=== PATIENT | female | born 2000 | race Caucasian/White ===

== ENCOUNTER 2024-11-28 07:59 | Outpatient (AMB) | payer OTHER, SELFPAY ==
--- OUTSIDE RECORDS SUMMARY | 2024-11-28 08:02 | XMS_ITS | Clinical Summary ---
Author Organization [employer] Address [address] [facility] [address] [place] [address] Care Team Providers Care Sales Marketing Name Role Phone Unavailable Primary Care Provider Unavailabl e Social History Tobacco Use Types Packs/Day Years Used Date Smoking Tobacco: Never Assessed Comments Unknown Sex and Gender Information Value Date Recorded Sex Assigned at Female 09/22/2023 2:17 PM EDT Legal Sex Female 1:47 PM EDT Gender Identity Female 09/22/2023 2:17 PM EDT Sexual Orientation Don't know 09/22/2023 2: 17 PM EDT Plan of Treatment Health Maintenance Due Date Last Done Comments Depression Screening 1998 HIV Screening 1998 SDOH Screening 1998 Disability Screening 1998 Alcohol/Substance Use Screening 2010 Tobacco Screening 2010 Family Planning (PISQ) 2013 HPV Vaccines (1 - 3-dose series) 2013 Hepatitis C Screening 2016 DTaP/Tdap/Td Vaccines (7 - Td or Tdap) 06/15/2019 06/15/2009, 12/22/2003, 06/23/2000, Additional history exists Pap Smear 12/12/2019 COVID-19 Vaccine ( - season) 2024 Influenza Vaccine (Season Ended) 2025 06/09/2009 Zoster Vaccines (1 of 2) 2048 RSV Patients and Patients Aged 60 years or older (1 - 1-dose 75+ series) 2073 Hepatitis B Vaccines Completed 09/13/1999, 01/07/1999, 1998 HIB Vaccines Completed 03/14/2000, 05/26, 04/15/1999, Additional history exists Pneumococcal Vaccine: Pediatrics (0 to 5 Years) and At-Risk Patients (6 to 49) Years) Aged Out 06/23/2000, 03/14/2000 No longer eligibl e based on patient's age to complete this topic IPV Vaccines Completed 12/22/2003, 05/27, 03/14/2000, Additional history exists Meningococcal Vaccine Completed 08/26/2016 Hepatitis A Vaccines Aged Out No long er eligible based on patient's age to complete this topic Meningococcal B Vaccine Aged Out No l onger eligible based on patient's age to complete this topic RSV under 20 months Aged Out No longe r eligible based on patient's age to complete this topic Rotavirus Vaccines Aged Out No longer eligible based on patient's age to complete this topic Insurance [facility] , [address] [place] [address]
--- NOTE | 2024-11-28 08:07 | MHC.PC.OV ---
Vital Signs 11/28/24 08:09 Height 5 ft 6.54 in Weight 233 lb 4 oz BMI 37.0 BP 120/78 Blood Pressure Location Lt brachial Position Sitting Pulse 73 Pulse Source Pulse Oximeter Temp 97.1 F Temp Source Temporal Artery Scan Pulse Oximetry (%) 97 Oxygen Delivery Method Room Air Intake Visit Reasons: establish care Intake Note: Patient is a new patient here to establish care for ADHD, Depression, PTSD. Transferring care from Anat Pritchard([facility]). Medical records have been requested and have not received. Art Librarian Required: No Transit Department Clerk: Not Required per policy Accompanied by: Self / Same As Patient Allergies No Known Allergies Allergy (Verified 11/28/24 08:15) Medication List - Last Reconciled 11/28/24 by Zhane De Oliveira PA-C No Known Home Meds Tobacco use date assessed: 11/28/24 Dental Screening Dental Screen Date: 11/28/24 Did you have a dental visit in the last 12 months?: No Did you have a dental problem in the last 6 months where you did not have access to dental care?: No Was dental information given to patient?: Patient declined HPI establish care HPI Details 23-year-old female with past medical history of ADHD, PTSD, depression coming to the office with the 1st time. Previously being seen by [facility]. Presenting for management of ADHD, depression, and PTSD, expressing dissatisfaction with past stimulant and antidepressant therapies. There is a history of tobacco use recently transitioning from vaping to intermittent cigarette smoking, coinciding with work-related pressures, with some interest expressed in cessation interventions. Heavy menstrual bleeding has increased recently without significant pain, potentially complicating lifestyle and increasing patient concern. Acid reflux is triggered by dietary and lifestyle factors, consistent with a pattern noted during periods of stress or dietary indiscretion. Binge eating behaviors pose challenges to weight management, with periods of excessive caloric intake followed by restrictions, worsening acid reflux symptoms. Keratosis pilaris, previously managed with topical cream, has been a non-serious dermatological concern, exacerbated by a lack of consistent access to dermatological care. The patient has a notable psychiatric profile with overlapping symptomology linking depression, ADHD, and PTSD. 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 1. Little interest or pleasure in doing things: more than half the days 2. Feeling down, depressed, or hopeless: not at all 3. Trouble falling or staying asleep, or sleeping too much: several days 4. Feeling tired or having little energy: more than half the days 5. Poor appetite or overeating: more than half the days 6. Feeling bad about yourself - or that you are a failure or have let yourself or your family down: several days 7. Trouble concentrating on things, such as reading the newspaper or watching television: nearly every day 8. Moving or speaking so slowly that other people could have noticed. Or the opposite - being so fidgety or restless that you have been moving around a lot more than usual: more than half the days 9. Thoughts that you would be better off or of hurting yourself in some way: not at all Total score: 13 Depression Screening Interpretation: Positive Depression Screening Follow-up: Existing condition and New Medication prescribed Depression Screening Done: Yes Source: Developed by Drs. Justino Martinez, Angela Farley, Aniket Marcano and colleagues, with an educational julio cesar from [employer]. Thrive Questionnaire Date Thrive assessed: 11/21/24 I am a: Patient What is your living situation today?: I have a steady place to live Within the past 12 months, did the food you bought not last and you didn't have the money to get more?: Never true Within the past 12 months, did you worry whether your food would run out before you got money to buy more?: Never true Do you have trouble paying for medicines?: No Do you have trouble getting transportation to medical appointments?: No Do you have trouble paying your heating and electricity bill?: No Do you have trouble taking care of your child, family member or friend?: No Do you have trouble with day-to-day activities such as bathing, preparing meals, shopping, managing finances, etc.?: No Are you currently unemployed and looking for a job?: No Are you interested in more education?: Yes Please select the resources that you would like help with: None Currently or been in a relationship where the following occur: No concerns reported THRIVE Score: 0 AUDIT C Alcohol Use Questionnaire (AUDIT-C) 1. How often do you have a drink containing alcohol?: 2-4 times a month 2. How many drinks containing alcohol do you have on a typical day when you are drinking?: 3 or 4 3. How often do you have six or more drinks on one occasion?: Less than monthly Total Score: 4 WINIFRED-7 AMB Questionnaire WINIFRED-7 Date WINIFRED - 7 assessed: 11/28/24 Feeling nervous, anxious, or on edge: 1 = Several days Not being able to stop or control worryin = Not at all Worrying too much about different things: 1 = Several days Trouble relaxin = Several days Being so restless that it is hard to sit still: 3 = Nearly every day Becoming easily annoyed or irritable: 3 = Nearly every day Feeling afraid as if something awful might happen: 0 = Not at all Total WINIFRED-7 score (0-4 normal; 5-9 mild; 10-14 moderate; 15-21 severe): 9 Source: Developed by Drs. Justino Martinez, Angela Farley, Aniket Marcano and colleagues, with an educational julio cesar from [employer]. WINIFRED-7 Assessment Billing WINIFRED-7 Assessment Tool: WINIFRED-7 Assessment 73566 Review of Systems Const Denies body aches, Denies chills, Denies fever(s), Denies headache(s), Reports increased appetite and Denies poor appetite Eyes Reports no additional complaints ENT Denies dizziness and Denies headache(s) Card Denies chest pain, Denies lightheadedness and Denies dyspnea Resp Denies dyspnea GI Denies abdominal pain, Denies constipation, Reports dyspepsia, Reports heartburn, Denies diarrhea, Denies nausea and Denies vomiting Reports no additional complaints Musc Reports no additional complaints and Denies abnormal gait Skin/Breast Reports system reviewed and no additional complaints, except as documented Neuro Denies abnormal gait, Denies dizziness and Denies headache(s) Psych Reports no additional complaints Physical exam (Primary Care) Vital Signs: Last Vital Signs Temp 97.1 F 11/28/24 08:09 Pulse 73 11/28/24 08:09 BP 120/78 11/28/24 08:09 Pulse Ox 97 11/28/24 08:09 Oxygen Delivery Method Room Air 11/28/24 08:09 BMI result Body Mass Index 37.0 Tobacco/Smoking Status: Tobacco use Status Tobacco use date assessed 11/28/24 11/28/24 08:15 Patient Tobacco Use Status Current everyday Tobacco 11/28/24 08:16 Tobacco use type Cigarette 11/28/24 08:16 e-Cigarette/Vaping Use Never Used 11/28/24 08:16 PHQ-9: PHQ-9 Score PHQ-9: Total score 13 11/28/24 08:38 Depression Screening Interpretation: Positive Depression Screening Follow-up: Existing condition and New Medication prescribed Thrive Assessment: Date of Thrive Assessment Date Thrive assessed 11/21/24 11/28/24 08:15 Currently or been in a relationship where the following occur: No concerns reported Const General: cooperative, healthy appearing, comfortable and no acute distress Orientation/consciousness: patient oriented x3 [facility] Head: Yes normocephalic Ears: hearing grossly normal bilaterally General nose exam: Normal external nose present Eyes General: appearance normal, both eyes and all related structures Conjunctivae: conjunctivae normal Neck Neck: Yes full ROM and Yes no lymphadenopathy Resp Effort & Inspection: normal respiratory effort Auscultation: clear to auscultation bilaterally, no crackles, no rales, no rhonchi and no wheezes Cardio Rate: regular rate Rhythm: regular rhythm Skin Other: Rough and bumpy skin of the upper arm bilaterally General skin exam: no rashes or lesions noted Neuro General: patient oriented x3 Gait exam (Neuro): Normal gait present Extrem General: Yes normal to inspection, Yes full ROM and No edema Psych Affect: normal affect Attitude: cooperative Insight: Good insight present (Psych) Judgement: Good judgement present (Psych) Coding Level of Care Code New Pt Level 4 (79256) Diagnoses Depression F32.A Anxiety F41.9 PTSD (post-traumatic stress disorder) F43.10 ADHD F90.9 Obesity (BMI 30-39.9) E66.9 Heavy menses N92.0 GERD (gastroesophageal reflux disease) K21.9 Keratosis pilaris L85.8 Binge eating R63.2 Tobacco use Z72.0 Additional Codes WINIFRED-7 Assessment Billing - WINIFRED-7 Assessment Tool: WINIFRED-7 Assessment 13908 ([id number]) Assessment & Plan Assessment & Plan (1) Depression: Code(s): F32.A - Depression, unspecified Category: Medical Plan: Patient having history of anxiety and depression previously on several different medications including Lexapro, Prozac, Zoloft and Effexor without good relief. Patient had side effects this medication and did not find them beneficial. She has tried Wellbutrin in the past but due to insurance issues she was unable to complete an effective course of this medication to determine if it was working. Plan to restart on Wellbutrin 100 mg once daily and taper up to twice daily after 2 weeks if patient is tolerating the medication well. Discussed with patient side effects of this medication. Advised patient to reach out should she develop any side effects or has any other issue with this medication. Plan to follow up in 2 months or sooner as needed. Referral was placed to counseling at patient request and consider referral to outpatient psych clinic if Wellbutrin is not tolerated. (2) Anxiety: Code(s): F41.9 - Anxiety disorder, unspecified Category: Medical Plan: See above (3) PTSD (post-traumatic stress disorder): Code(s): F43.10 - Post-traumatic stress disorder, unspecified Category: Medical Plan: See above plan for depression (4) ADHD: Code(s): F90.9 - Attention-deficit hyperactivity disorder, unspecified type Category: Medical Plan: Patient started on Wellbutrin. She has tried several different stimulant medications in the past and has not found them beneficial such as Adderall, Ritalin and Vyvanse. Consider referral to outpatient psych clinic (5) Obesity (BMI 30-39.9): Code(s): E66.9 - Obesity, unspecified Category: Medical Plan: Healthy diet and regular exercise is encouraged. (6) Heavy menses: Code(s): N92.0 - Excessive and frequent menstruation with regular cycle Category: Medical Plan: Patient complaining of heavy menses without pain or dyspareunia. Referral was placed to gynecology for further evaluation and treatment. (7) GERD (gastroesophageal reflux disease): Code(s): K21.9 - Gastro-esophageal reflux disease without esophagitis Category: Medical Plan: Avoid trigger foods such as citrus, tomato products, soda, caffeine, spicy foods and other foods that may be irritating to your stomach. Avoid laying flat 3-4 hours after eating and elevate the head of the bed 30 degrees to prevent acid from moving into the esophagus. Plan to start on omeprazole 20 mg nightly (8) Keratosis pilaris: Code(s): L85.8 - Other specified epidermal thickening Category: Medical Plan: Plan to initiate urea cream 40%. Discussed with patient if symptoms do not improve plan to refer to Dermatology (9) Binge eating: Code(s): R63.2 - Polyphagia Category: Medical Plan: Patient reports engaging in binge eating behaviors discussed the importance of plan to be schedules and plan mealtimes. I also feel it would be appropriate for this patient to meal prep at the beginning of the week to ensure she is not skipping meals or having excessive amounts of food in 1 sitting. Referral was placed to diet and nutrition today as well to create a meal plan that is appropriate for this patient. (10) Tobacco use: Code(s): Z72.0 - Tobacco use Category: Medical Plan: Smoking cigarettes and the use of tobacco can be harmful. We discussed the importance of stopping and options to aid in smoking cessation. Patient states she smokes about 1 cigarette per day she is not interested in quitting at this time. Discussed nicotine replacement therapy and trial of Wellbutrin as well. Plan The patient will pursue a trial of Wellbutrin for management of depression and ADHD symptoms, with education on monitoring for adverse effects and adaptability in dosage. Omeprazole was prescribed for her acid reflux, with the suggestion to note potential triggers and dietary adjustments. Heavy menstrual bleeding will be addressed by a gynecology referral, exploring hormonal options as needed. Recommendations for diverse strategies to manage binge eating were provided, accompanied by a health insurance adjuster referral to ensure appropriate meal planning and potential weight stabilization. Interest in therapy for PTSD and depression remains strong. Smoking cessation programs were discussed, though more serious commitments were deferred until the patient signals greater readiness. Diagnostic labs will evaluate underlying metabolic or endocrinological contributors to her spectrum of symptoms, and I will follow up based on initial lab results and the patient?s therapeutic responses. This note was constructed using voice recognition software. While every effort has been made to ensure accuracy and welder/installer, still areas may have been included sometimes these areas may affect the content or meeting of the given symptoms. Total time spent caring for the patient today was 30 minutes. This includes time spent before the visit reviewing the chart, time spent during the visit, and time spent after the visit and documentation. Patient was informed and verbally consented to the use of an ambient scribe for clinic note documentation during this visit. Orders: Orders TSH reflex Free T4 Today E66.9 - Obesity, unspecified, Z00.00 - Encounter for general adult medical examination without abnormal findings Vitamin D 25-OH Total Today E66.9 - Obesity, unspecified, Z00.00 - Encounter for general adult medical examination without abnormal findings Complete Blood Count Auto Diff Today K21.9 - Gastro-esophageal reflux disease without esophagitis, Z00.00 - Encounter for general adult medical examination without abnormal findings Comprehensive Met. Panel Today K21.9 - Gastro-esophageal reflux disease without esophagitis, Z00.00 - Encounter for general adult medical examination without abnormal findings Free T4 (Free Thyroxine) Today E66.9 - Obesity, unspecified, Z00.00 - Encounter for general adult medical examination without abnormal findings Vitamin B12 and Folate Today E66.9 - Obesity, unspecified, Z13.21 - Encounter for screening for nutritional disorder Referrals Counseling Referral F32.A - Depression, unspecified, F43.10 - Post-traumatic stress disorder, unspecified, F90.9 - Attention-deficit hyperactivity disorder, unspecified type [employer]IEF Referral Z12.4 - Encounter for screening for malignant neoplasm of cervix [facility] Director Nutrition Referral E66.9 - Obesity, unspecified, R63.2 - Polyphagia Medications: New omeprazole 20 mg PO DAILY 30 caps 0RF bupropion HCl 100 mg PO BID 60 tabs 0RF urea 40% 1 appl topical BID 198 grams 0RF
[2024-11-28 08:09] VITALS: BP 120/78; PULSE 73; TEMP 36.2; O2SAT 97; BMI 37.0
== END 2024-11-28 08:52 | disposition home or self-care (01) ==
LOC: HO.HMCH 07:59
DX: N92.0 Excessive and frequent menstruation with regular cycle (principal); F32.A Depression, unspecified; F41.9 Anxiety disorder, unspecified; F43.10 Post-traumatic stress disorder, unspecified; F90.9 Attention-deficit hyperactivity disorder, unspecified type; E66.9 Obesity, unspecified; Z68.37 Body mass index [BMI] 37.0-37.9, adult; K21.9 Gastro-esophageal reflux disease without esophagitis; L85.8 Other specified epidermal thickening; R63.2 Polyphagia; Z72.0 Tobacco use

== ENCOUNTER → 2024-11-28 07:59 | Outpatient (BNVA) | payer OTHER, SELFPAY | DX: N92.0 Excessive and frequent menstruation with regular cycle (principal); F90.9 Attention-deficit hyperactivity disorder, unspecified type; F43.10 Post-traumatic stress disorder, unspecified; F32.A Depression, unspecified; E66.9 Obesity, unspecified; K21.9 Gastro-esophageal reflux disease without esophagitis; L85.8 Other specified epidermal thickening; R63.2 Polyphagia; F17.210 Nicotine dependence, cigarettes, uncomplicated; Z68.37 Body mass index [BMI] 37.0-37.9, adult | CPT/HCPCS: 96127 ==

== ENCOUNTER 2025-01-07 11:36 | Outpatient (AMB) | payer OTHER, SELFPAY ==
--- NOTE | 2025-01-07 11:39 | A.OFFVIS_ITS ---
VS Expanded 01/07/25 11:40 01/07/25 11:48 Height 5 ft 6.54 in 5 ft 6.2 in Weight 230 lb 2.601 oz 230 lb BMI 36.5 36.9 Intake Visit Reasons: Obesity, unspecified, polyphagia Allergies No Known Allergies Allergy (Verified 11/28/24 08:15) Nutrition Presentation Details: Pt presents for MNT for obesity, polyphagia Pt reports having started wellbutrin which is helping reduce appetite typical meal b: 9 am eggs/spinach sausage cream no sugar added L: tuna salad wrap or salad with chicken, air fryer, water 7 pm: now salads with chicken food frequency fish : 3 x/wk fruits: 0-1/d vegetables: daily yogurt: 2-3 x/wk physical activity: 1-2 x/wk eoth/smoking: marihuana TLW-Nzimpsk-Ka.Jeor Equation Height: 5 ft 6.2 in Weight: 230 lb Resting Metabolic Rate: 1804.24 Calculated Activity Level: Sedentary Calories Needed to Maintain Weight: 2165.09 Diagnosis Nutrition problem #1: overweight/obesity As related to (etiology) #1: diagnosis As evidenced by (sign/symptom) #1: high BMI Monitoring/Goals Nutrition problem monitoring: level of knowledge/skill, total PRO intake, total CHO intake and weight PFSH Surgical History No pertinent past surgical history Family History Mother Mental health disorder Diabetes Heart disease Thyroid disease Social History Housing: House Alcohol intake: current Alcohol intake frequency: a few times a week Patient Tobacco Use Status: Current everyday Tobacco user Tobacco use type: Cigarette Cigarette Packs Per Day: 0.25 Cigarettes Per Day: 2 e-Cigarette/Vaping Use: Never Used Second Hand Smoke Exposure: Yes Substance Use Type: Marijuana service: No Current occupational status: employed 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 Cognitive needs: No Hearing needs: No Vision needs: No Assessment & Plan Assessment & Plan (1) Obesity (BMI 30-39.9): Code(s): E66.9 - Obesity, unspecified Category: Medical Plan: Wt: 104 Kg ( 01/17 ) Est kcal needs as per MSJ: 2200 (40% carb, 30% protein/fat) Est fluid needs as per 25-30 ml/d: 3100 Est prot per day as per 1 g/kg bw: 100 Recommend fiber intake : 8-10 g per day and gradually increase to 25-28 g per day for women and 35-38 g for men or as tolerated Recommend sodium intake per day : less than 2300 mg Educated patient on: ( R = reviewed V = verbalizes understanding N/R = needs review N/A = not applicable * Food sources of carbohydrate, adequate serving sizes and its role in various health conditions: R * Differences between complex carbohydrates a simple carbohydrates, role of fiber in diet: R V * Lean protein sources of foods: R * Differences between types of fats and role in diet (mono on saturated fat fatty acids, saturated fatty acids, trans fats): R V N/R * Food sources of sodium in salt and healthy modifications for heart health in kidney health: R V R/V * Vitamins and minerals: R V N/R * Healthy plate method concept: R V N/R * Physical activity: Benefits a precaution: R V N/R * mindful eating Patient Instructions: Work on having 3 scheduled meals/day and 1-2 snacks Have a meal replacement once a day have 2 meals consisting of 60 g carb, choose complex carbohydrates and 3-4 oz lean protein at lunch and dinner have 2 snack consisting of 20 g carb or less see meal/snack ideas Coding Level of Care Code Nutr Indiv Intake (09827) Diagnoses Obesity (BMI 30-39.9) E66.9 Time Spent (min) 30
[2025-01-07 11:40] VITALS: BMI 36.5
--- OUTSIDE RECORDS SUMMARY | 2025-01-07 12:58 | XMS_ITS | Clinical Summary ---
Author Organization [employer] Address [address] [place] [address] Care Team Providers Care Supervisor Sign Shop Name Role Phone Unavailable Primary Care Provider [...] Vaccine ( - season) 2024 Influenza Vaccine (#1) 2025 06/09/2009 Zoster Vaccines (1 of 2) 2048 RSV Patients and Patients Aged 60 years or older (1 - 1-dose 75+ series) 2073 Hepatitis B Vaccines Completed 09/13/1999, 01/07/1999, 1998 HIB Vaccines Completed 03/14/2000, 05/26, 04/15/1999, Additional history exists Pneumococcal Vaccine: Pediatrics (0 to 5 Years) and At-Risk Patients (6 to 49) Years Aged Out 06/23/2000, 03/14/2000 No longer eligibl [...] patient's age to complete this topic Insurance [facility] , [address] [place] [address]
[2025-01-14 20:56] VITALS: BMI 36.9
== END 2025-01-07 12:10 | disposition home or self-care (01) ==
LOC: HO.ENCR 11:37
PROVIDERS: Visit Provider Dietitian, Registered
DX: E66.9 Obesity, unspecified (principal)

== ENCOUNTER → 2025-01-07 11:36 | Outpatient (BNVA) | payer OTHER, SELFPAY | PROVIDERS: Visit Provider Dietitian, Registered | DX: Z71.3 Dietary counseling and surveillance (principal); E66.9 Obesity, unspecified | CPT/HCPCS: 97802 ==

== ENCOUNTER 2025-01-30 09:30 | Outpatient (AMB) | payer OTHER, SELFPAY ==
--- OUTSIDE RECORDS SUMMARY | 2021-03-29 14:14 | XMS_ITS | Encounter Summary ---
Author Organization [facility] Address [address] [place] [phone] Phone Care Team Providers Care Reading Recovery Teacher Name Role Phone Pcp, Unknown Primary Care Provider Unavailabl e Encounter Details Date Type Department Care Team (Late st Contact Info) Description 03/29/2021 2:14 PM EDT Hospital Encounter [facility] [address] [place] [phone] Josue Wright PA-C [address] [place] [phone] [email or web address] Social History Tobacco Use Types Packs/Day [...] 08/21/2022 1:54 AM Frances Yoder RN * [place] Suicide Severity Rating Scale (Screener/Recent Self-Report) Question [...] the report originally createdby Brian Martin. Josue Wright PA-C IMG XR LOWER EXTREMITY Fi nal Result documented in this encounter Visit Diagnoses Not on filedocumented in this encounter Additional Health Concerns Infection Onset Date Last Indicated Resolved Time CoV-Risk 10/10/2023 10/10/2023 10/21/2023 1:22 AM EDT CoV-Risk 07/04/2024 07/04/2024 07/15/2024 1:21 AM EST CoV-Risk 09/08/2024 09/08/2024 09/19/2024 1:21 AM EDT documented as of this encounter Care Teams Reading Recovery Teacher Relationship Specialty Start Date End Date Pcp, Unknown PCP - General 03/29/21 08/05/21 documented as of this encounter Additional Source Comments The information contained in this document represents components of the legal health record. It is not the complete legal health record.[facility]
--- NOTE | 2025-01-30 09:36 | MHC.PC.OV ---
Vital Signs 01/30/25 09:37 Height 5 ft 6.2 in Weight 229 lb BMI 36.7 BP 136/62 Blood Pressure Location Lt brachial Position Sitting Pulse 76 Pulse Source Pulse Oximeter Pulse Oximetry (%) 98 Oxygen Delivery Method Room Air Intake Visit Reasons: Annual Exam Operations Intelligence Required: No Accompanied by: Self / Same As Patient Allergies No Known Allergies Allergy (Verified 01/30/25 09:47) Medication List - Last Reconciled 01/30/25 by Zhane De Oliveira PA-C bupropion HCl 100 mg PO BID omeprazole 20 mg PO DAILY urea 40% 1 appl topical BID Tobacco use date assessed: 01/30/25 Dental Screening Dental Screen Date: 01/30/25 Did you have a dental visit in the last 12 months?: No Did you have a dental problem in the last 6 months where you did not have access to dental care?: No Was dental information given to patient?: No HPI Annual Exam HPI Details 24 year old female with past medical history of PTSD, depression, ADHD, obesity, GERD, anxiety and tobacco use last seen 11/2024 coming in for annual exam. The patient was started on Wellbutrin, which initially showed improvement in symptoms but has since plateaued. She reports improved motivation and activity levels but experiences some spaciness and brain fog. She expresses a desire to increase the dosage for better efficacy. The patient reports mild anxiety, particularly after the second dose of Wellbutrin, but it is not severe. She notes that the restlessness associated with the medication encourages activity rather than being detrimental. The patient has been taking omeprazole in the morning with Wellbutrin and reports no current symptoms of acid reflux. The patient was prescribed a 40% urea cream, but due to cost, she opted for a 20% alternative. She reports some improvement with consistent use. The patient has scheduled a gynecological appointment for April. She reports current menstrual periods are not as heavy, possibly due to increased exercise. The patient has quit smoking and vaping, attributing this change to Wellbutrin. She occasionally uses cannabis but has stopped alcohol consumption to improve health. The patient reports intermittent eye pressure. She has not experienced blurred vision but is advised to see an eye doctor for further evaluation. 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 1. Little interest or pleasure in doing things: more than half the days 2. Feeling down, depressed, or hopeless: not at all 3. Trouble falling or staying asleep, or sleeping too much: several days 4. Feeling tired or having little energy: more than half the days 5. Poor appetite or overeating: more than half the days 6. Feeling bad about yourself - or that you are a failure or have let yourself or your family down: several days 7. Trouble concentrating on things, such as reading the newspaper or watching television: nearly every day 8. Moving or speaking so slowly that other people could have noticed. Or the opposite - being so fidgety or restless that you have been moving around a lot more than usual: more than half the days 9. Thoughts that you would be better off or of hurting yourself in some way: not at all Total score: 13 Depression Screening Interpretation: Positive Depression Screening Follow-up: Existing condition and In treatment Depression Screening Done: Yes Source: Developed by Drs. Justino Martinez, Angela Farley, Aniket Marcano and colleagues, with an educational julio cesar from [employer]. Thrive Questionnaire Date Thrive assessed: 01/30/25 I am a: Patient What is your living situation today?: I have a steady place to live Within the past 12 months, did the food you bought not last and you didn't have the money to get more?: Never true Within the past 12 months, did you worry whether your food would run out before you got money to buy more?: Never true Do you have trouble paying for medicines?: No Do you have trouble getting transportation to medical appointments?: No Do you have trouble paying your heating and electricity bill?: No Do you have trouble taking care of your child, family member or friend?: No Do you have trouble with day-to-day activities such as bathing, preparing meals, shopping, managing finances, etc.?: No Are you currently unemployed and looking for a job?: No Are you interested in more education?: Yes Please select the resources that you would like help with: None Currently or been in a relationship where the following occur: No concerns reported THRIVE Score: 0 WINIFRED-7 AMB Questionnaire WINIFRED-7 Date WINIFRED - 7 assessed: 01/30/25 Feeling nervous, anxious, or on edge: 1 = Several days Not being able to stop or control worryin = Not at all Worrying too much about different things: 1 = Several days Trouble relaxin = Several days Being so restless that it is hard to sit still: 3 = Nearly every day Becoming easily annoyed or irritable: 3 = Nearly every day Feeling afraid as if something awful might happen: 0 = Not at all Total WINIFRED-7 score (0-4 normal; 5-9 mild; 10-14 moderate; 15-21 severe): 9 Source: Developed by Drs. Justino Martinez, Angela Farley, Aniket Marcano and colleagues, with an educational julio cesar from [employer]. Review of Systems Const Denies body aches, Denies fatigue, Denies fever(s), Denies frequent falls, Denies headache(s) and Denies weakness Eyes Reports as per HPI and Denies change in vision ENT Denies dysphagia, Denies dizziness, Denies facial pain, Denies headache(s) and Denies odynophagia Card Denies chest pain, Denies syncope, Denies irregular heart rhythm, Denies leg edema, Denies lightheadedness and Denies dyspnea Resp Denies dyspnea GI Denies abdominal pain, Denies constipation, Denies dysphagia, Denies dyspepsia, Denies diarrhea, Denies nausea, Denies odynophagia and Denies vomiting Denies urinary frequency, Denies dysuria, Denies urinary hesitancy and Denies urinary urgency Musc Denies back pain and Denies myalgias Skin/Breast Reports system reviewed and no additional complaints, except as documented Neuro Denies dizziness, Denies syncope, Denies frequent falls, Denies headache(s) and Denies weakness Psych Reports no additional complaints Endo Denies fatigue Physical exam (Primary Care) Vital Signs: Last Vital Signs Pulse 76 01/30/25 09:37 BP 136/62 01/30/25 09:37 Pulse Ox 98 01/30/25 09:37 Oxygen Delivery Method Room Air 01/30/25 09:37 BMI result Body Mass Index 36.7 Tobacco/Smoking Status: Tobacco use Status Tobacco use date assessed 01/30/25 01/30/25 09:41 Patient Tobacco Use Status Former Tobacco user 01/30/25 10:00 Tobacco use type Cigarette 01/30/25 09:41 e-Cigarette/Vaping Use Never Used 01/30/25 09:41 PHQ-9: PHQ-9 Score PHQ-9: Total score 13 01/30/25 10:46 Depression Screening Interpretation: Positive Depression Screening Follow-up: Existing condition and In treatment Thrive Assessment: Date of Thrive Assessment Date Thrive assessed 01/30/25 01/30/25 09:41 Currently or been in a relationship where the following occur: No concerns reported Const General: cooperative, healthy appearing, comfortable and no acute distress Orientation/consciousness: patient oriented x3 HENMT Head: Yes normocephalic Ears: hearing grossly normal bilaterally, external ears normal, TM's normal bilaterally and EAC's normal General nose exam: Normal external nose present Face and sinus: Yes normal facial exam and Yes sinuses nontender Mouth: Normal oral and palatal mucosa present and tongue normal Throat: Yes posterior oropharynx normal Eyes General: appearance normal, both eyes and all related structures Conjunctivae: conjunctivae normal Pupils: Equal, round and reactive pupils present EOM: EOMs intact bilaterally and No Nystagmus present Neck Neck: Yes normal visual inspection, Yes full ROM and Yes no lymphadenopathy Chest Chest palpation & inspection: normal inspection of the chest Resp Effort & Inspection: normal respiratory effort Auscultation: clear to auscultation bilaterally, no crackles, no rales, no rhonchi, no wheezes and breath sounds present Cardio Rate: regular rate Rhythm: regular rhythm Peripheral pulses: radial pulses present and dorsalis pedis present GI Inspection: Yes normal to inspection and No Abdominal wall edema Palpation (GI): Soft to palpation, not firm and nontender Auscultation: normal bowel sounds Rectal Exam - Female: deferred General: Yes no CVA tenderness Back/Spine/Pelvis Back: no CVA tenderness Skin General skin exam: no rashes or lesions noted Neuro General: patient oriented x3 Cranial nerves: Yes Equal, round and reactive pupils present, Yes Midline tongue present, Yes Ability to bilaterally elevate shoulders present and No Nystagmus present Gait exam (Neuro): Normal gait present Extrem General: Yes normal to inspection, Yes full ROM, No no pedal edema and No edema Psych Speech and movement: Normal speech and movement present Affect: normal affect Insight: Good insight present (Psych) Judgement: Good judgement present (Psych) Immunizations Boostrix Tdap 2.5 Lf unit-8 mcg-5 Lf/0.5 mL intramuscular syringe Performing Provider: Zhane De Oliveira PA-C [facility] Administered by: Kavita Ramos LPN on 01/30/25 10:45 Dose Route Admin Location Dispensed Lot Number Expiration Date [facility] Domestic Freight Forwarder 0.5 mL IM Right Deltoid 0.5 mL [id number] 04/18/27 [id number] Cost Effective Data Total Dispensed Waste 0.5 mL 0 % VIS Given Date VIS Provided VIS Publication Date 01/30/25 Single Vaccine 21 Eligibility Eligibility Date Funding Source Not [facility] Eligible 01/30/25 Private Coding Level of Care Code Est Pt Prev Care 18-39y([id number]) Diagnoses Annual physical exam Z00.00 Depression F32.A Anxiety F41.9 PTSD (post-traumatic stress disorder) F43.10 ADHD F90.9 Obesity (BMI 30-39.9) E66.9 GERD (gastroesophageal reflux disease) K21.9 Tobacco use Z72.0 Heavy menses N92.0 Keratosis pilaris L85.8 Binge eating R63.2 Eye strain H53.10 Assessment & Plan Assessment & Plan (1) Annual physical exam: Code(s): Z00.00 - Encounter for general adult medical examination without abnormal findings Category: Medical Plan: Patient is up-to-date on all recommended routine screenings and vaccinations for her age. Tdap was given in the office today I reminded the patient about blood work. Plan to follow up in 3 months or sooner as needed. (2) Depression: Code(s): F32.A - Depression, unspecified Category: Medical Plan: Patient was started on the Wellbutrin at last visit and feels it has been improving her symptoms significantly since last visit. She would like to increase the dose at this time as she feels it has room to improve the anxiety and depression further. She is having mild brainfog but feels the side effects are well managed at this time. Regarding the eye strain I did review with the patient possible side effects of Wellbutrin and reviewed red flag symptoms and when to present for re-evaluation. (3) Anxiety: Code(s): F41.9 - Anxiety disorder, unspecified Category: Medical Plan: See above (4) PTSD (post-traumatic stress disorder): Code(s): F43.10 - Post-traumatic stress disorder, unspecified Category: Medical Plan: See above plan for depression (5) ADHD: Code(s): F90.9 - Attention-deficit hyperactivity disorder, unspecified type Category: Medical Plan: Patient started on Wellbutrin. She has tried several different stimulant medications in the past and has not found them beneficial such as Adderall, Ritalin and Vyvanse. She feels it has been mildly improving her ADHD at this time. (6) Obesity (BMI 30-39.9): Code(s): E66.9 - Obesity, unspecified Category: Medical Plan: Healthy diet and regular exercise is encouraged. (7) GERD (gastroesophageal reflux disease): Code(s): K21.9 - Gastro-esophageal reflux disease without esophagitis Category: Medical Plan: Avoid trigger foods such as citrus, tomato products, soda, caffeine, spicy foods and other foods that may be irritating to your stomach. Avoid laying flat 3-4 hours after eating and elevate the head of the bed 30 degrees to prevent acid from moving into the esophagus. Continue on Omeprazole daily. (8) Tobacco use: Code(s): Z72.0 - Tobacco use Category: Social Hx Plan: Started on Wellbutrin at the last visit and is no longer smoking at this time. (9) Heavy menses: Code(s): N92.0 - Excessive and frequent menstruation with regular cycle Category: Medical Plan: Patient complaining of heavy menses without pain or dyspareunia. Referral was placed to gynecology for further evaluation and treatment at last visit. 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 (10) Keratosis pilaris: Code(s): L85.8 - Other specified epidermal thickening Category: Medical Plan: Plan to initiate urea cream 40%. Discussed with patient if symptoms do not improve plan to refer to Dermatology (11) Binge eating: Code(s): R63.2 - Polyphagia Category: Medical Plan: Continue to follow up with diet and nutrition and feels the Wellbutrin has been helping with this concern as well. (12) Eye strain: Code(s): H53.10 - Unspecified subjective visual disturbances Category: Medical Plan: Patient reports eye strain and pressure sensation while looking at screens for long periods of time. I did discuss possible side effects of Wellbutrin which do include angle closure glaucoma. I reviewed these red flag symptoms with the patient and when to present for re-evaluation as this considered an emergency. We will also place a referral to an eye doctor for further evaluation and treatment. In the meantime avoid the excessive use of screens and consider blue light glasses Plan The patient will continue on Wellbutrin with an increased dosage to three times a day, monitoring for any worsening of anxiety or eye pressure. If the three times a day dosing is not well tolerated, adjustments will be made to morning and evening dosing. The patient is advised to report any significant changes in symptoms, particularly regarding eye pressure, to consider dosage adjustments. Omeprazole will continue to be taken in the morning, as it effectively manages GERD symptoms. For keratosis pilaris, the patient is encouraged to try a 40% urea cream available online for better results, with consistent application being carmona. The patient is scheduled for a gynecological follow-up in April to address menorrhagia and will continue increased physical activity, which may contribute to silk screen operator periods. The patient has successfully quit smoking and vaping, with Wellbutrin aiding in this process. She is encouraged to maintain her current lifestyle changes, including abstaining from alcohol. A tetanus vaccine is recommended during this visit, and blood work is advised to be completed at the patient's convenience. A referral to an eye doctor is made to evaluate the reported eye strain. This note was constructed using voice recognition software. While every effort has been made to ensure accuracy and clinical dietetic technician, still areas may have been included sometimes these areas may affect the content or meeting of the given symptoms. Total time spent caring for the patient today was 3rd minutes. This includes time spent before the visit reviewing the chart, time spent during the visit, and time spent after the visit and documentation. Patient was informed and verbally consented to the use of an ambient scribe for clinic note documentation during this visit. Orders: Orders TDaP Immunization Today Z23 - Encounter for immunization Referrals Optometry Referral Z00.00 - Encounter for general adult medical examination without abnormal findings Medications: New bupropion HCl administer 6 hours apart 100 mg PO TID 270 tabs 0RF 90 days
[2025-01-30 09:37] VITALS: BP 136/62; PULSE 76; O2SAT 98; BMI 36.7
--- OUTSIDE RECORDS SUMMARY | 2025-01-30 09:57 | XMS_ITS | Clinical Summary ---
Author Organization [employer] Address [address] [place] [address] Care Team Providers Care Timber Skidder Name Role Phone Unavailable Primary Care Provider [...] patient's age to complete this topic Insurance [facility] , [address] [place] [address]
--- OUTSIDE RECORDS SUMMARY | 2025-01-30 09:57 | XMS_ITS ---
Author Name [facility] Organization Unknown Care Team Organization Name Specialty Phone Email Start Date End Da te [facility] Ginger Childs Primary Care 10/31/20222023 [facility] Santos Peter DO Primary Care 05/03/202201/24
== END 2025-01-30 10:46 | disposition home or self-care (01) ==
LOC: HO.HMCH 09:31
DX: Z23 Encounter for immunization (principal)

== ENCOUNTER → 2025-01-30 09:30 | Outpatient (BNVA) | payer OTHER, SELFPAY | DX: Z00.00 Encounter for general adult medical examination without abnormal findings (principal); F43.10 Post-traumatic stress disorder, unspecified; F41.9 Anxiety disorder, unspecified; F90.9 Attention-deficit hyperactivity disorder, unspecified type; E66.9 Obesity, unspecified; K21.9 Gastro-esophageal reflux disease without esophagitis; F32.A Depression, unspecified; N92.0 Excessive and frequent menstruation with regular cycle; L85.8 Other specified epidermal thickening; R63.2 Polyphagia; H53.10 Unspecified subjective visual disturbances; Z72.0 Tobacco use; Z23 Encounter for immunization; Z79.899 Other long term (current) drug therapy | CPT/HCPCS: 90471; 90715; 96127 ==

== ENCOUNTER 2025-03-15 09:35 | Outpatient (AMB) | payer OTHER, SELFPAY ==
--- OUTSIDE RECORDS SUMMARY | 2025-03-15 09:38 | XMS_ITS | Clinical Summary ---
Author Organization [employer] Address [address] [place] [address] Care Team Providers Care Treasury Director Name Role Phone Unavailable Primary Care Provider [...] Smear 12/12/2019 COVID-19 Vaccine ( - season) 2025 Influenza Vaccine (#1) 2025 06/09/2009 Zoster Vaccines [...] patient's age to complete this topic Insurance [facility] , [address] [place] [address]
[2025-03-15 10:26] VITALS: BP 122/88; PULSE 78; RESP 16; TEMP 36.7; O2SAT 99; BMI 36.5
--- NOTE | 2025-03-15 10:26 | AM.OFFWIN_ITS ---
Intake Vital Signs 03/15/25 10:26 Height 5 ft 6 in Weight 226 lb BMI 36.5 BP 122/88 Blood Pressure Location Rt brachial Position Sitting Respiration 16 Pulse 78 Pulse Source Pulse Oximeter Temp 98.0 F Temp Source Oral Pulse Oximetry (%) 99 Oxygen Delivery Method Room Air Intake Visit Reasons: EP-uti Intake Note: Pt is here today c/o burning upon urination and frequent urination since last night Patient Tobacco Use Status: Former Tobacco user Allergies No Known Allergies Allergy (Verified 01/30/25 09:47) HPI EP-uti HPI Details Patient is a 24-year-old female comes to the walk-in clinic complaining of dysuria and urinary frequency since yesterday. She reports that she had forgotten to urinate after intercourse yesterday morning, and developed symptoms later in the day. No report of vaginal discharge or bleeding, odor to the urine, pelvic or abdominal pain, flank or back pain, nausea vomiting or diarrhea, fever or chills, nausea vomiting or diarrhea, dizziness or weakness, chest pain, or other significant associated symptoms. No or high-risk sexual intercourse reported. 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[employer] Cognitive needs: No Hearing needs: No Vision needs: No Review of Systems Const All systems reviewed & are unremarkable except as noted in HPI and below Physical Exam Vital Signs: Last Vital Signs Temp 98.0 F 03/15/25 10:26 Pulse 78 03/15/25 10:26 Resp 16 03/15/25 10:26 BP 122/88 03/15/25 10:26 Pulse Ox 99 03/15/25 10:26 Oxygen Delivery Method Room Air 03/15/25 10:26 BMI result Body Mass Index 36.5 Const General: cooperative, healthy appearing, comfortable, no acute distress, alert, awake, Physically active and well groomed; No anxious, diaphoretic, ill appearing, intoxicated appearing, poor hygiene or tired appearing Nutritional Appearance: average body habitus Orientation/consciousness: oriented to person Limitations: no limitations Resp Effort & Inspection: normal respiratory effort Cardio Rate: regular rate GI Palpation (GI): no guarding, not rigid, No hepatosplenomegaly present and Bladder palpation abnormal (Tender to palpation suprapubic area) General: Yes Bladder palpation abnormal (Tender to palpation suprapubic area) and Yes no CVA tenderness Back/Spine/Pelvis Back: no CVA tenderness Skin Other: Good color, warm and dry Neuro General: oriented to person Psych Appearance: grossly normal Mental Status: mental status grossly normal Speech and movement: Normal speech and movement present Affect: normal affect Attitude: cooperative Thought process: Normal thought process present Insight: Good insight present (Psych) Judgement: Good judgement present (Psych) Results AMB Urinalysis, Automated UA Leukoctes 500 Bibi/uL Last Edit by Ginette Borges CMA on 03/15/25 10:35 UA Nitrite Positive Last Edit by Ginette Borges CMA on 03/15/25 10:35 UA Urobilinogen 4 mg/dL Last Edit by Ginette Borges CMA on 03/15/25 10:35 UA Protein 100 mg/dL Last Edit by Ginette Borges CMA on 03/15/25 10:35 UA pH 7.0 Last Edit by Ginette Borges CMA on 03/15/25 10:35 UA Blood 200 Alessandro/uL Last Edit by Ginette Borges CMA on 03/15/25 10:35 UA Specific [place] 1.015 Last Edit by Ginette Borges CMA on 03/15/25 10:35 UA Ketone Positive Last Edit by Ginette Borges CMA on 03/15/25 10:35 UA Bilirubin 2 mg/dL Last Edit by Ginette Borges CMA on 03/15/25 10:35 UA Glucose 0 mg/dL Last Edit by Ginette Borges CMA on 03/15/25 10:35 Results Reviewed Results Reviewed: Laboratory Last Values Urine pH (Auto) 7.0 03/15/25 10:26 Specific [place] (Auto) 1.015 03/15/25 10: Urine Protein (Auto) 100 mg/dL 03/15/25 10: Glucose (UA)(Auto) 0 mg/dL 03/15/25 10: Urine Ketones (Auto) Positive 03/15/25 10:26 Urine Blood (Auto) 200 Alessandro/uL 03/15/25 10:26 Urine Nitrite (Auto) Positive 03/15/25 10:26 Urine Bilirubin (Auto) 2 mg/dL 03/15/25 10:26 Urine Urobilinogen (Auto) 4 mg/dL 03/15/25 10: Leukocyte Esterase (Auto) 500 Bibi/uL 03/15/25 10: Urine dip positive for nitrites, ketones, heme and leuks Assessment & Plan Assessment & Plan (1) Acute cystitis: Code(s): N30.00 - Acute cystitis without hematuria Qualifiers: Hematuria presence: with hematuria Qualified Code(s): N30.01 - Acute cystitis with hematuria Plan Patient is a 24-year-old female with apparent acute urethritis and cystitis, likely due to not doing post coital urinating yesterday morning. She started to develop symptoms last night consistent with UTI, and in office urine dip positive for nitrites, ketones and leuks. History of acute simple cystitis that cleared with 1st round antibiotics in the past, so I will write her for Macrobid today. She can continue the Pyridium as needed for the dysuria. Advised frequent water intake today and staying close to a bathroom to assist with clearing the infection. We will not send it out at this point due to no high- risk features. or STD testing not requested by the patient. She was advised to monitor for symptoms persisting or worsening including fever or chills, flank or mid back pain, nausea vomiting or diarrhea, worsening abdominal pain, or any other significant associated symptoms. She knows to come back to the walk-in as needed, or go to the emergency department with severe symptoms. Orders: Orders AMB Urinalysis Automated Today Z13.9 - Encounter for screening, unspecified Medications: New nitrofurantoin monohyd/m-cryst 100 mg (Macrobid) must administer with a meal/food 100 mg PO Q12H 10 caps 0RF 5 days N39.0 - Urinary tract infection, site not specified Coding Level of Care Code Est Pt Level 4 (69603) Diagnoses Acute cystitis with hematuria N30.01 Hematuria presence: with hematuria
== END 2025-03-15 11:29 | disposition home or self-care (01) ==
PROVIDERS: Visit Provider Physician Assistant Medical
DX: Z13.9 Encounter for screening, unspecified (principal); N30.01 Acute cystitis with hematuria

== ENCOUNTER → 2025-03-15 09:35 | Outpatient (BNVA) | payer OTHER, SELFPAY | PROVIDERS: Visit Provider Physician Assistant Medical | DX: N30.01 Acute cystitis with hematuria (principal) | CPT/HCPCS: 81003 ==

== ENCOUNTER 2025-03-22 19:36 | Emergency (ER) | payer OTHER, SELFPAY ==
--- OUTSIDE RECORDS SUMMARY | 2021-03-29 14:14 | XMS_ITS | Encounter Summary ---
Author Organization [facility] Address [address] [place] [phone] Phone Care Team Providers Care Industrial Fabric Cutter Name Role Phone Pcp, Unknown Primary Care Provider Unavailabl e Encounter Details Date Type Department Care Team (Late st Contact Info) Description 03/29/2021 2:14 PM EDT Hospital Encounter [facility] [address] [place] [phone] Josue Wright PA [address] [place] [phone] [email or web address] Social History Tobacco Use Types Packs/Day [...] 08/21/2022 1:54 AM Frances Yoder RN * [place] Suicide Severity Rating Scale (Screener/Recent Self-Report) Question [...] documented as of this encounter Care Teams Industrial Fabric Cutter Relationship Specialty Start Date End Date Pcp, Unknown PCP - General 03/29/21 08/05/21 documented as of this encounter Additional Source Comments The information contained in this document represents components of the legal health record. It is not the complete legal health record.[facility]
--- OUTSIDE RECORDS SUMMARY | 2024-07-04 12:34 | XMS_ITS | Encounter Summary ---
Author Organization [facility] Address [address] [place] [address] [place] [phone] Phone Care Team Providers Care Clay Digger Name Role Phone Pcp, Unknown Primary Care Provider Unavailabl e Encounter Details Date Type Department Care Team (Late st Contact Info) Description 07/04/2024 11:34 AM EST Hospital Encounter [facility] [address] [place] [phone] Cecile Hogan FNP [address] [place] [phone] [email or web address] Social History Tobacco Use Types Packs/Day Years [...] clinician's provided indication for this examination in [facility]: Cough; one week, worse at night, [...] clinician's provided indication for this examination in [facility]:Cough; one week, worse at night, wheezing right lung. no hx of asthma COMPARISON: None FINDINGS: Devices/Tubes/Lines: None. Lungs: Normal. The lungs are clear. No focal consolidation or pulmonaryedema. Pleura: Normal. No pleural effusion or pneumothorax. Heart/Mediastinum: Normal heart and mediastinum. Bones/Soft Tissues: Normal. No significant skeletal abnormality. IMPRESSION: Normal chest. Cecile Hogan BULL WHEEL WORKER IMG XR CHEST Final Resul t documented in this encounter Visit Diagnoses Not on filedocumented in this encounter Additional Health Concerns Infection Onset Date Last Indicated Resolved Time CoV-Risk 07/04/2024 07/04/2024 07/15/2024 1:21 AM EST CoV-Risk 09/08/2024 09/08/2024 09/19/2024 1:21 AM EDT documented as of this encounter Care Teams Clay Digger Relationship Specialty Start Date End Date Pcp, Unknown PCP - General 10/30/23 documented as of this encounter Additional Source Comments The information contained in this document represents components of the legal health record. It is not the complete legal health record.[facility]
--- NOTE | ~2025-03-22 | XR_ITS ---
CLINICAL HISTORY: pain constipation 1 view abdomen Comparison: None provided Findings: No pneumoperitoneum or pneumatosis. No abnormal calcifications. No acute fractures. There is diffuse fecal material seen throughout the colon. IMPRESSION: 1. Constipation. This document has been electronically signed by: Johnathan Gasca MD on 03/22/2025 23:15:57
--- NOTE | 2025-03-22 19:38 | ED.GENADULT ---
HPI - General Adult General Chief complaint: Abdominal Pain Stated complaint: lower back/abd pain Time Seen by Provider: 03/22/25 21:22 Source: patient Limitations: no limitations History of Present Illness ED Provider: Elba Parsons PA-C HPI narrative: 24-year-old morbidly obese female presents with abdominal pain since earlier today. Pain over left mid abdomen to flank, can not describe the nature of her discomfort. Patient was diagnosed with a urinary tract infection last week, she did not finish her antibiotics. Denies dysuria, hematuria, mid back pain, history of kidney stones, fever. Denies constipation. Denies abdominal distention or inability to pass flatus. Related Data Previous Rx's ?Medication ?Instructions ?Recorded urea 40 % topical cream 1 appl topical BID #198 grams 11/28/24 bupropion HCl 100 mg tablet 100 mg PO BID #60 tabs 12/26/24 bupropion HCl 100 mg tablet 100 mg PO TID 90 days #270 tabs 01/30/25 omeprazole 20 mg capsule,delayed 20 mg PO DAILY #30 caps 02/07/25 release nitrofurantoin 100 mg PO Q12H 5 days #10 caps 03/15/25 monohydrate/macrocrystals 100 mg capsule (Macrobid) Allergies Allergy/AdvReac Type Severity Reaction Status Date / Time No Known Allergies Allergy Verified 03/22/25 19:42 Review of Systems Review of Systems: Yes all other systems are reviewed and are negative Constitutional: Constitutional: Denies fatigue and Denies fever(s) Cardiovascular: Cardiovascular: Denies chest pain Gastrointestinal: Gastrointestinal: Reports abdominal pain, Denies bloating, Denies nausea and Denies vomiting Genitourinary: Genitourinary: Denies hematuria, Denies dysuria and Reports flank pain Musculoskeletal: Musculoskeletal: Denies back pain Endocrine: Endocrine: Denies fatigue PMFSH Past Medical History Attestation statement: The following information was validated with the patient. Surgical History No pertinent past surgical history Family History Family History Mother Mental health disorder Diabetes Heart disease Thyroid disease Social History Social History Housing: House Alcohol intake: current Alcohol intake frequency: a few times a week Patient Tobacco Use Status: Former Tobacco user Tobacco use type: Cigarette Cigarette Packs Per Day: 0.25 Cigarettes Per Day: 2 Smoked in Last 30 Days: No e-Cigarette/Vaping Use: Never Used Second Hand Smoke Exposure: Yes Use of substances other than those prescribed or required for medical reasons: No Substance Use Type: Marijuana Advance Directives: No Advance Directives Information Provided: No Patient : No service: No Current occupational status: employed 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 [employer] Cognitive needs: No Hearing needs: No Vision needs: No Physical Exam ED Vital Signs: Vital Signs - 24 hr 03/22/25 19:40 03/22/25 22:50 Temperature 98.1 F 98.7 F Pulse Rate 74 77 Respiratory Rate 18 18 Blood Pressure 145/78 H 122/83 Pulse Oximetry 99 96 Oxygen Delivery Method Room Air Room Air BMI result Body Mass Index 35.2 Const Other: Alert Orientation/consciousness: patient oriented x3 Resp Effort & Inspection: normal respiratory effort Cardio Other: Normal peripheral perfusion GI Other: Abdomen is soft, obese, nontender to palpation no guarding General: Yes no CVA tenderness Back/Spine/Pelvis Back: no CVA tenderness Skin Other: Warm dry no rash Neuro General: patient oriented x3, gait normal, no focal motor deficits and CN's II-XI intact bilaterally Psych Other: Cooperative Course Course Course Narrative: This is a rapid medical exam performed by Kelly Martines NP: Additional HPI, ROS, PE not included below will be deferred to primary provider. Patient is a 24y/o F presenting with complaint of L flank and lower back pain. States was treated for a UTI last week but did not take last 2 doses. Denies current UTI sxs. Plan: labs, UA Medications Administered Discontinued Medications Generic Name Dose Route Start Last Admin Trade Name Freq PRN Reason Stop Dose Admin Sucralfate 1 gm 03/22/25 23:26 03/22/25 23:50 Sucralfate Oral Suspension 1 Gm/10 Ml Oral.Susp PO 03/22/25 23:27 1 gm ONCE ONE Administration Medical Decision Making Medical Decision Making [facility] Narrative: 24-year-old morbidly obese female presents with abdominal pain since earlier today. Pain over left mid abdomen to flank, can not describe the nature of her discomfort. Patient was diagnosed with a urinary tract infection last week, she did not finish her antibiotics. Denies dysuria, hematuria, mid back pain, history of kidney stones, fever. Denies constipation. Denies abdominal distention or inability to pass flatus. Problem: Obesity History: Per patient I have considered the following differential diagnoses: Refractory urinary tract infection, pyelonephritis, renal colic, constipation, pancreatitis, diverticulitis Plan: Patient here with vague abdominal pain with an unremarkable exam. Screening labs including a urinalysis were already obtained from triage, UTI resolved, the remainder of her labs are unremarkable. She has no CVA tenderness to suggest pyelonephritis or renal colic, she is afebrile. She denies constipation, given she just had a UTI, perhaps that was the trigger for her infection. We will add on a KUB. Given left-sided symptoms I did considered pancreatitis, however there was no focal left upper quadrant pain. Likewise thought about diverticulitis, however no focal left lower quadrant pain, she is not having active diarrhea or nausea vomiting. She does not warrant advanced imaging at this time I have independently reviewed the following tests: Labs: No leukocytosis, not anemic, no electrolyte abnormality, urine not infected not KUB:Findings: No pneumoperitoneum or pneumatosis. No abnormal calcifications. No acute fractures. There is diffuse fecal material seen throughout the colon. IMPRESSION: 1. Constipation. Differential Diagnosis Differential Diagnoses: The differential diagnosis associated with the presentation includes See medical decision Admission/Observation Consideration of admission/observation: Escalation of care including admission/observation considered Not applicable Lab Data MDM Lab Attestation statement: I reviewed the patient's lab results. 03/22/25 19:47 03/22/25 19:47 Labs: Lab Results 03/22/25 03/22/25 Range/Units 19:47 21:04 WBC 10.8 (4.8-10.8) X10*3/uL RBC 4.29 (4.20-5.50) X10*6/uL Hgb 11.9 L (12.0-16.0) g/dl Hct 35.6 L (37.0-47.0) % MCV 83.0 (80.0-98.0) fL MCH 27.7 (27.0-33.0) pg MCHC 33.4 (31.0-35.0) g/dl RDW 13.1 (11.0-16.0) % Plt Count 275 (160-400) X10*3/uL MPV 10.5 (9.4-12.3) fL Immature Gran % (Auto) 0.2 (0.0-0.4) % Neut % (Auto) 51.0 (45-73) % Lymph % (Auto) 41.7 H (20-40) % [place] % (Auto) 6.0 (2-11) % Eos % (Auto) 0.7 (0-4) % Baso % (Auto) 0.4 (0-2) % Lymph # (Auto) 4.5 (1.2-4.9) X10*3/uL [place] # (Auto) 0.7 (0.1-1.2) X10*3/uL Eos # (Auto) 0.1 (0.0-0.4) X10*3/uL Baso # (Auto) 0.0 (0.0-0.2) X10*3/uL Abs Immat Gran (auto) 0.02 (0.00-0.03) X10*3/uL Absolute Neuts (auto) 5.5 (2.0-8.3) x10*3/uL Absolute Nucleated RBC 0.000 (0.0-0.012) X10*3/uL Nucleated RBC % (auto) 0.0 (0.0-0.2) /100WBC Sodium 140 (135-145) mmol/L Potassium 4.2 (3.3-5.1) mmol/L Chloride 106 (96-108) mmol/L Carbon Dioxide 27 (22-29) mmol/L Anion Gap 11 L (12-20) BUN 17 H (9-16) mg/dL Creatinine 0.96 (0.5-1.4) mg/dL Estim Creat Clear Calc 109.0 Estimated GFR > 60 Random Glucose 105 (60-115) mg/dL Calcium 9.6 (8.4-10.2) mg/dL Total Bilirubin 0.1 (0.0-1.0) mg/dL AST 15 (5-31) U/L ALT 24 (0-31) U/L Alkaline Phosphatase 54 (39-117) U/L Total Protein 7.4 (6.5-8.0) g/dL Albumin 4.4 (3.5-5.0) g/dL Beta HCG, Quant < 2 mIU/mL Urine Color Yellow Urine Appearance Clear Urine pH 6.0 (5.0-9.0) Ur Specific [place] 1.010 (1.005-1.025) Urine Protein Negative (Neg-Trace) mg/dL Urine Glucose (UA) Negative (Negative) mg/dL Urine Ketones Negative (Negative) mg/dL Urine Blood Negative (Negative) Urine Nitrite Negative (Negative) Ur Leukocyte Esterase Negative (Negative) Radiology Impression Discussion of test interpretation with radiology: I have reviewed the radiologist's reading. Discharge Plan Discharge Clinical Impression: Constipation Patient Disposition: Home, Self-Care Instructions: Constipation (ED) Additional Instructions: All of your labs were normal, your urinary tract infection has resolved. The x-ray revealed that you were considerably constipated. See home care instructions. Use [id number] Colace twice a day, use [id number] MiraLax multiple times a day versus every hour, until you begin having multiple large volume bowel movements. Once you evacuate your current stool burden, you may require the use of daily Colace with the MiraLax, to help maintain regularity. Follow up with your primary care as needed. Prescriptions: No Action bupropion HCl 100 mg tablet 100 mg PO BID Qty: 60 0RF omeprazole 20 mg capsule,delayed release(DR/EC) 20 mg PO DAILY Qty: 30 4RF urea 40 % cream 1 appl topical BID Qty: 198 0RF bupropion HCl 100 mg tablet 100 mg PO TID 90 Days Qty: 270 0RF Rx Instructions: administer 6 hours apart nitrofurantoin monohyd/m-cryst [Macrobid] 100 mg capsule 100 mg PO Q12H 5 Days Qty: 10 0RF Rx Instructions: must administer with a meal/food Stand Alone Forms: Work/School Release Interventions: ED Discharge Assessment Last Done: 03/23/25 00:08 Discharge Date/Time: 03/23/25 00:13 Print Language: British
[2025-03-22 19:40] VITALS: BP 145/78; PULSE 74; RESP 18; TEMP 36.7; O2SAT 99; BMI 35.2
[2025-03-22 19:51] LABS: MANUAL DIFF FLAG NO
[2025-03-22 19:52] LABS: Hematocrit 35.6 % (37.0-47.0); Hemoglobin 11.9 g/dl (12.0-16.0); Imm Gran Abs Auto 0.02 X10*3/uL (0.00-0.03); Imm Gran Pct Auto 0.2 % (0.0-0.4); Lymphocytes Absolute Auto 4.5 X10*3/uL (1.2-4.9); Mean Corpuscular HGB Conc 33.4 g/dl (31.0-35.0); Mean Corpuscular Hemoglobin 27.7 pg (27.0-33.0); Mean Corpuscular Volume 83.0 fL (80.0-98.0); NRBC Abs Auto 0.000 X10*3/uL (0.0-0.012); NRBC Pct Auto 0.0 /100WBC (0.0-0.2); Platelet Count 275 X10*3/uL (160-400); Red Blood Count 4.29 X10*6/uL (4.20-5.50); White Blood Count 10.8 X10*3/uL (4.8-10.8)
--- OUTSIDE RECORDS SUMMARY | 2025-03-22 19:57 | XMS_ITS | Clinical Summary ---
Author Organization [employer] Address [address] [place] [address] Care Team Providers Care Librarian Name Role Phone Unavailable Primary Care Provider [...] patient's age to complete this topic Insurance [facility] , [address] [place] [address]
--- OUTSIDE RECORDS SUMMARY | 2025-03-22 19:57 | XMS_ITS | Encounter Summary ---
Author Organization [facility] Address [address] [place], [place] [id number] Phone Care Team Providers Care Family Law Specialist Name Role Phone Pcp, Unknown Primary Care Provider Unavailabl e Cordelia Pritchard MD Primary Care Provider Pcp, Unknown Primary Care Provider Unavailabl e Encounter Details Date Type Department Care Team (Late st Contact Info) Description 03/30/2021 Procedure Pass [facility], Ct Scan - [address] [address] Social History Tobacco Use Types Packs/Day Years Used Date Smoking Tobacco: Some Days Smokeless Tobacco: Never Comments:Pt states they use e-cigs. Alcohol Use Standard Drinks/Week Comments Yes 0 (1 standard drink = 0.6 oz pur e alcohol) Occasionally Comments Unknown Sex and Gender Information Value Date Recorded Sex Assigned at Female 08/21/2022 1:54 AM EST Legal Sex Female 1:31 PM EDT Gender Identity Female 08/21/2022 1:54 AM EST Sexual Orientation Straight 08/21/2022 1: 54 AM EST documented as of this encounter Plan of Treatment Not on file documented as of this encounter Visit Diagnoses Not on filedocumented in this encounter Additional Health Concerns Infection Onset Date Last Indicated Resolved Time CoV-Risk 10/10/2023 10/10/2023 10/21/2023 1:22 AM EDT CoV-Risk 07/04/2024 07/04/2024 07/15/2024 1:21 AM EST CoV-Risk 09/08/2024 09/08/2024 09/19/2024 1:21 AM EDT documented as of this encounter Care Teams Family Law Specialist Relationship Specialty Start Date End Date Pcp, Unknown PCP - General 03/29/21 08/05/21 Cordelia Pritchard MD PCP - General Internal Medicine 08/06/21 10/29/23 Pcp, Unknown PCP - General 10/30/23 documented as of this encounter Additional Source Comments The information contained in this document represents components of the legal health record. It is not the complete legal health record.[facility]
--- OUTSIDE RECORDS SUMMARY | 2025-03-22 19:57 | XMS_ITS | Clinical Summary ---
Author Organization [facility] Address [address] [place], [place] [address] Phone Care Team Providers Care Wire Taper Name Role Phone Pcp, Unknown Primary Care Provider Unavailabl e Allergies No known active allergies Medications medroxyPROGESTE Gallo (DEPO-PROVERA) 150 mg/mL Syrg IM injection syringe Inject 150 mg into the muscle. Active albuterol (PROAIR HFA) 90 mcg/actuation inhaler Inhale 2 puffs into the lungs every 4 (four) hours as needed for wheezing. 18 g 5 Active Additional Information Patient not taking.Reported on 09/08/2024 inhaler spacing device (AEROCHAMBER,BR EATHERITE) Spcr Inhale 1 each into the lungs every 4 (four) hours as needed. 1 each 5 Active Additional Information Patient not taking.Reported on 09/08/2024 penicillin V potassium (VEETIDS) 500 MG tablet Take 1 tablet (500 mg total) by mouth 2 (two) times a day. Take w food, yogurt, probiotics. Finish all. 20 tablet Active Active Problems No known active problems Social History Tobacco Use Types Packs/Day Years Used Date Smoking Tobacco: Some Days Smokeless Tobacco: Never Tobacco Cessation:Ready to Q uit: Not Asked; Counseling Given: Not Answered Comments:Pt states they use e-cigs. Alcohol Use [...] Orientation Straight 08/21/2022 1: 54 AM EST Last Filed Vital Signs Vital Sign Reading Time Taken Comments Blood Pressure 125/82 09/08/2024 11:56 AM EDT Pulse 86 09/08/2024 11:56 AM EDT Temperature 36.8 C (98.3 F) 09/08/2024 11:56 AM EDT Respiratory Rate 18 09/08/2024 11:56 AM EDT Oxygen Saturation 96% 09/08/2024 11:56 AM EDT Inhaled Oxygen Concentration - - Weight 81.6 kg (180 lb) 03/30/2021 12:01 PM EDT Height 170.2 cm (5' 7 ) 03/30/2021 12:01 PM EDT Body Mass Index 28.19 03/30/2021 12:01 PM EDT Plan of Treatment Health Maintenance Due Date Last Done Comments DEPRESSION SCREENING 2010 SMOKING Hx and SMOKELESS TOBACCO SCREENING 12/12/2011 HPV VACCINES (1 - 3-dose series) 2013 HEPATITIS C SCREENING 2016 HIV ONE-TIME SCREENING (18-65 YEARS) 2016 PNEUMOCOCCAL VACCINES (0-49 years) (1 of 2 - PCV) 2017 06/23/2000, 03/14/2000 PAP SMEAR 12/12/2019 Adult Td,Tdap Booster 09/28/2024 09/28/2014, 009 INFLUENZA VACCINE (#1) 2025 04/19/2024, 2008 COVID-19 VACCINE ( season) 2025 HIB VACCINES Completed 03/14/2000, 05/26, 04/15/1999, Additional history exists MENINGOCOCCAL VACCINES (ACWY) Completed 08/26/2016 HEPATITIS A VACCINES Aged Out No long er eligible based on patient's age to complete this topic MENINGOCOCCAL VACCINES (B) Aged Out N o longer eligible based on patient's age to complete this topic Medical Devices Not on file Insurance [facility] Member Subscriber Plan / Payer (Ef fective 2022-Present) Name:Jo Cespedes Relation to Subscriber:Self Name:Jo Cespedes Payer ID:[id number] Group ID:[id number] Type:Medicaid Address: [address] PARTIAL [facility] [employer] [facility] PARTIAL [facility] COMMERCIAL [facility] Address: [id number] [place] [address] COMMERCIAL [facility] Member Subscriber Plan / Payer (Ef fective 2022-Present) Name:Kraig Rangel Jo Relation to Subscriber:Self Name:Jo Cespedes Payer ID:[id number] Group ID:[id number] Type:Medicaid Address: [address] [employer] PART[place] [facility] Address: [place] [address] GENERIC COMMERCIAL [facility] Member Subscriber Plan / Payer (Ef fective 2022-Present) Name:Kraig Rangel Jo Relation to Subscriber:Self Name:Jo Cespedes Payer ID:[id number] Group ID:[id number] Type:Medicaid Address: [address] NET PARTIAL [facility] Address: [address] COMM[facility]CIAL [facility] [address] NET PARTIAL [facility] GENERIC COMMERCIAL Care Teams Wire Taper Relationship Specialty Start Date End Date Pcp, Unknown PCP - General 10/30/23 Additional Source Comments The information contained in this document represents components of the legal health record. It is not the complete legal health record.[facility]
[2025-03-22 20:29] LABS: Alanine Aminotransferase 24 U/L (0-31); Albumin Level 4.4 g/dL (3.5-5.0); Alkaline Phosphatase 54 U/L (39-117); Anion Gap 11 (12-20); Aspartate Amino Transferase 15 U/L (5-31); Blood Urea Nitrogen 17 mg/dL (9-16); Calcium 9.6 mg/dL (8.4-10.2); Carbon Dioxide 27 mmol/L (22-29); Chloride 106 mmol/L (96-108); Creatinine Clr Calc Pharmacy 109.0; Estimated Glomerular Filt Rate > 60; Potassium 4.2 mmol/L (3.3-5.1); Sodium 140 mmol/L (135-145); Total Protein 7.4 g/dL (6.5-8.0)
[2025-03-22 21:14] LABS: Appearance Urine Clear; Glucose Urine UA Negative (Negative); PH 6.0 (5.0-9.0); Specific Gravity - Urine 1.010 (1.005-1.025)
[2025-03-22 22:50] VITALS: BP 122/83; PULSE 77; RESP 18; TEMP 37.1; O2SAT 96
[2025-03-22] MEDS: Sucralfate Oral Suspension 1 GM/10 ML ORAL.SUSP PO (23:50)
[2025-03-23 00:08] VITALS: BP 147/93; PULSE 72; RESP 16; TEMP 36.8; O2SAT 96
== END 2025-03-23 00:13 | disposition home or self-care (01) ==
PROVIDERS: Registered Nurse Emergency; Emergency Provider Emergency Medicine
DX: K59.00 Constipation, unspecified (principal); M54.50 Low back pain, unspecified; R10.2 Pelvic and perineal pain; Z79.899 Other long term (current) drug therapy
CPT/HCPCS: 36415; 74018; 80053; 81003; 84702; 85025; 99283; 99284

== ENCOUNTER → 2025-03-22 22:17 | Outpatient (BNV) | payer OTHER, SELFPAY | PROVIDERS: Emergency Provider Emergency Medicine; Visit Provider Radiology Diagnostic Radiology | DX: K59.00 Constipation, unspecified (principal) | CPT/HCPCS: 74018 ==

== ENCOUNTER 2025-05-02 09:19 | Outpatient (AMB) | payer OTHER, SELFPAY ==
--- NOTE | 2025-05-02 09:18 | A.OFFPC_ITS ---
Vital Signs 05/02/25 09:19 Height 5 ft 7 in Weight 220 lb BMI 34.5 Intake Visit Reasons: f/u depression tele Allergies No Known Allergies Allergy (Verified 05/02/25 10:14) Medication List - Last Reconciled 05/02/25 by Zhane De Oliveira PA-C bupropion HCl 100 mg PO BID bupropion HCl 100 mg PO TID 90 days nitrofurantoin monohyd/m-cryst 100 mg (Macrobid) 100 mg PO Q12H 5 days omeprazole 20 mg PO DAILY urea 40% 1 appl topical BID Tobacco use date assessed: 01/30/25 Dental Screening Dental Screen Date: 01/30/25 Did you have a dental visit in the last 12 months?: No Did you have a dental problem in the last 6 months where you did not have access to dental care?: No Was dental information given to patient?: No HPI f/u depression tele HPI Details 24-year-old female with past medical his tory of PTSD, depression, ADHD, obesity, current, anxiety and tobacco use last seen 01/2025 presenting via telehealth for follow up.?At her last visit Wellbutrin was increased for better control of her depression. Patient tells us today she continues to have eye pressure bilaterally which occurs 1-2x per weeks and lasts for 10-15 minutes before resolving. This initially started with Wellbutrin but we had attributed it to eye strain with the use of screens. She denies any pain or vision changes. She increased the Wellbutrin to TID but eye pressure became more frequent prompting her to return to BID dosing. She has had multiple anti depressants in the past without good benefit. 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 1. Little interest or pleasure in doing things: more than half the days 2. Feeling down, depressed, or hopeless: not at all 3. Trouble falling or staying asleep, or sleeping too much: several days 4. Feeling tired or having little energy: more than half the days 5. Poor appetite or overeating: more than half the days 6. Feeling bad about yourself - or that you are a failure or have let yourself or your family down: several days 7. Trouble concentrating on things, such as reading the newspaper or watching television: nearly every day 8. Moving or speaking so slowly that other people could have noticed. Or the opposite - being so fidgety or restless that you have been moving around a lot more than usual: more than half the days 9. Thoughts that you would be better off or of hurting yourself in some way: not at all Total score: 13 Depression Screening Interpretation: Positive Depression Screening Follow-up: Existing condition and In treatment Depression Screening Done: Yes Source: Developed by Drs. Justino Martinez, Angela Farley, Aniket Marcano and colleagues, with an educational julio cesar from [employer]. Thrive Questionnaire Date Thrive assessed: 01/30/25 I am a: Patient What is your living situation today?: I have a steady place to live Within the past 12 months, did the food you bought not last and you didn't have the money to get more?: Never true Within the past 12 months, did you worry whether your food would run out before you got money to buy more?: Never true Do you have trouble paying for medicines?: No Do you have trouble getting transportation to medical appointments?: No Do you have trouble paying your heating and electricity bill?: No Do you have trouble taking care of your child, family member or friend?: No Do you have trouble with day-to-day activities such as bathing, preparing meals, shopping, managing finances, etc.?: No Are you currently unemployed and looking for a job?: No Are you interested in more education?: Yes Please select the resources that you would like help with: None Currently or been in a relationship where the following occur: No concerns reported THRIVE Score: 0 AUDIT C Alcohol Use Questionnaire (AUDIT-C) 1. How often do you have a drink containing alcohol?: 2-4 times a month 2. How many drinks containing alcohol do you have on a typical day when you are drinking?: 3 or 4 3. How often do you have six or more drinks on one occasion?: Less than monthly Total Score: 4 WINIFRED-7 AMB Questionnaire WINIFRED-7 Date WINIFRED - 7 assessed: 01/30/25 Feeling nervous, anxious, or on edge: 1 = Several days Not being able to stop or control worryin = Not at all Worrying too much about different things: 1 = Several days Trouble relaxin = Several days Being so restless that it is hard to sit still: 3 = Nearly every day Becoming easily annoyed or irritable: 3 = Nearly every day Feeling afraid as if something awful might happen: 0 = Not at all Total WINIFRED-7 score (0-4 normal; 5-9 mild; 10-14 moderate; 15-21 severe): 9 Source: Developed by Drs. Justino Martinez, Angela Farley, Aniket Marcano and colleagues, with an educational julio cesar from [employer]. Review of Systems Const Denies body aches, Denies chills, Denies fever(s) and Denies lethargy Eyes Reports as per HPI ENT Reports no additional complaints Card Denies chest pain, Denies irregular heart rhythm, Denies lightheadedness and Denies dyspnea Resp Denies dyspnea GI Reports no additional complaints Musc Reports no additional complaints Physical exam (Primary Care) Vital Signs: Vital signs and physical exam not performed due to nature of telehealth visit BMI result Body Mass Index 34.5 Tobacco/Smoking Status: Tobacco use Status Tobacco use date assessed 01/30/25 05/02/25 09:18 Patient Tobacco Use Status Former Tobacco user 05/02/25 09:18 Tobacco use type Cigarette 05/02/25 09:18 e-Cigarette/Vaping Use Never Used 05/02/25 09:18 PHQ-9: PHQ-9 Score PHQ-9: Total score 13 05/02/25 10:14 Depression Screening Interpretation: Positive Depression Screening Follow-up: Existing condition and In treatment Thrive Assessment: Date of Thrive Assessment Date Thrive assessed 01/30/25 05/02/25 09:18 Currently or been in a relationship where the following occur: No concerns reported Telehealth Telehealth Telehealth Platform: ) Location of provider rendering services: practice address Location of patient: address on file Patient Identification confirmed using: Name, : Yes Telehealth method: voice only Patient verbally consented to treatment: Yes Patient verbally consented to billing insurance company: Yes Patient informed of any privacy concerns related to visit: Yes Coding Level of Care Code Est Pt Level 3 (41381) Diagnoses Depression F32.A Anxiety F41.9 ADHD F90.9 Obesity (BMI 30-39.9) E66.9 Eye strain H53.10 Assessment & Plan Assessment & Plan (1) Depression: Code(s): F32.A - Depression, unspecified Category: Medical Plan: She has tried multiple different antidepressants in the past without good benefit. She felt the Wellbutrin was beneficial for her anxiety, depression and ADHD but given the concern of the eye pressure I recommend discontinuing this medication at this time. Discussed how to taper the medication and recommend trial of Citalopram. Given the history of unsuccessful treatment I would recommend outpatient psych clinic and referral was placed today. (2) Anxiety: Code(s): F41.9 - Anxiety disorder, unspecified Category: Medical Plan: See above (3) ADHD: Code(s): F90.9 - Attention-deficit hyperactivity disorder, unspecified type Category: Medical Plan: She has tried stimulants in the past and did not find them beneficial. Wellbutrin was working but she did have side effects to this medication. Referral placed to outpatient psych clinic today. (4) Obesity (BMI 30-39.9): Code(s): E66.9 - Obesity, unspecified Category: Medical Plan: Healthy diet and regular exercise is encouraged. (5) Eye strain: Code(s): H53.10 - Unspecified subjective visual disturbances Category: Medical Plan: Recommend limiting screen time and discontinuation of Wellbutrin as this may be contributing to her symptoms. She needs to reschedule her eye exam as she missed her appointment recently. Plan This note was constructed using voice recognition software. While every effort has been made to ensure accuracy and carbon printer, still areas may have been included sometimes these areas may affect the content or meeting of the given symptoms. Total time spent caring for the patient today was 15 minutes. This includes time spent before the visit reviewing the chart, time spent during the visit, and time spent after the visit and documentation. Patient was informed and verbally consented to the use of an ambient scribe for clinic note documentation during this visit. Orders: Referrals Psychiatry Outpatient Consultation Service F32.A - Depression, unspecified, F41.9 - Anxiety disorder, unspecified, F43.10 - Post-traumatic stress disorder, unspecified, F90.9 - Attention-deficit hyperactivity disorder, unspecified type Medications: New citalopram 10 mg PO DAILY 90 tabs 0RF Discontinued bupropion HCl Discontinued Reason: Patient no longer taking 100 mg PO BID 60 tabs 0RF bupropion HCl administer 6 hours apart Discontinued Reason: Patient no longer taking 100 mg PO TID 90 days 270 tabs 0RF
[2025-05-02 09:19] VITALS: BMI 34.5
--- OUTSIDE RECORDS SUMMARY | 2025-05-02 10:29 | XMS_ITS | Clinical Summary ---
Author Organization [employer] Address [address] [place] [address] Care Team Providers Care Filter Tender Name Role Phone Unavailable Primary Care Provider [...] patient's age to complete this topic Insurance [facility] , [address] [place] [address]
== END 2025-05-02 10:23 | disposition home or self-care (01) ==
LOC: HO.HMCH 09:19
DX: F32.A Depression, unspecified (principal); E66.9 Obesity, unspecified; Z68.34 Body mass index [BMI] 34.0-34.9, adult; F41.9 Anxiety disorder, unspecified; F90.9 Attention-deficit hyperactivity disorder, unspecified type; H53.10 Unspecified subjective visual disturbances

== ENCOUNTER 2025-05-06 09:04 | Outpatient (AMB) | payer OTHER, SELFPAY ==
--- OUTSIDE RECORDS SUMMARY | 2021-03-29 13:14 | XMS_ITS | Encounter Summary ---
Author Organization [facility] Address [address] [place] [phone] Phone Care Team Providers Care Film Laboratory Technician Name Role Phone Pcp, Unknown Primary Care Provider Unavailabl e Encounter Details Date Type Department Care Team (Late st Contact Info) Description 03/29/2021 2:14 PM EDT Hospital Encounter [facility] [address] [place] [phone] Josue Wright PA [address] [place] [phone] [email or web address] Social History Tobacco Use Types Packs/Day Years Used Date Smoking Tobacco: Some Days Smokeless Tobacco: Never Comments:Pt states they use e-cigs. Alcohol Use Standard Drinks/Week Comments Yes 0 (1 standard drink = 0.6 oz pur e alcohol) Occasionally Education Answer Date Recorded Are you interested in more education? Not on kelvin e 10/22/2022 Are you concerned about learning? Not on file 10/22/2022 No 10/22/2022 No 10/22/2022 Digital Access Answer Date Recorded No 11/20/2022 No 11/20/2022 Reliable internet access at home? Not on file 11/20/2022 Device with a working camera? Not on file Intimate Partner Violence Answer Date R ecorded Are you denied basic needs s uch as food, clothing, or medical care? No 08/21/2022 In the past 12 months have y ou been in a relationship with a person who hurts, threatens, or tries to control you? No 08/21/2022 Are you denied basic needs s uch as food, clothing, or medical care? No 08/21/2022 In the past 12 months have y ou been in a relationship with a person who hurts, threatens, or tries to control you? No 08/21/2022 Comments Unknown Sex and Gender Information Value Date Recorded Sex Assigned at Female 08/21/2022 1:54 AM EST Legal Sex Female 1:31 PM EDT Gender Identity Female 08/21/2022 1:54 AM EST Sexual Orientation Straight 08/21/2022 1: 54 AM EST documented as of this encounter Functional Status * Calculated C-SSRS Risk Score (Lifetime/Recent) Answer Date of Assessment Author No Risk Indicated 08/21/2022 1:54 AM Frances Yoder RN * [place] Suicide Severity Rating Scale (Screener/Recent Self-Report) Question Answer Date of Assessment Author 1. Wish to be (Past 1 Month) No 08/21/2022 1:54 AM Frances Yoder RN 2. Non-Specific Active Suicidal Thoughts (Past 1 Month) No 08/21/2022 1:54 AM Frances Yoder RN 6. Suicidal Behavior (Lifetime) No 08/21/2022 1:54 AM Frances Yoder RN documented as of this encounter Plan of Treatment Not on file documented as of this encounter Procedures Procedure Name Priority Date/Time Associated Diagnosis Comments XR FOOT 3 OR MORE VIEWS (RIGHT) Urgent/patient waiting 03/29/2021 2:22 PM EDT Open displaced fracture of third metatarsal bone of right foot, initial encounter documented in this encounter Results * XR FOOT 3 OR MORE VIEWS (RIGHT) (03/29/2021 2:22 PM EDT) Anatomical Region Laterality Modality Foot Right Computed Radiogr aphy 03/29/2021 2:47 PM EDT Impressions 03/29/2021 3:06 PM EDT 1. No acute fracture or dislocation in the right ankle. 2. Comminuted fractures of the base of third and fourth metatarsals. Critical results were communicated and documented using the Alert Notification of Critical Radiology Results (ANCR) system. ATTESTATION: I, Mukul Abad as teaching physician, have reviewed the images for this case and if necessary edited the report originally created by Brian Martin. Narrative 03/29/2021 3:06 PM EDT XR FOOT 3 OR MORE VIEWS (RIGHT), XR ANKLE 3 OR MORE VIEWS (RIGHT) COMPARISON: None. FINDINGS: Ankle: No ankle fracture. Normal alignment. The ankle mortise is symmetric. No soft tissue swelling. Foot: Comminuted fractures of the third and fourth metatarsal bases. No other fracture is seen. Accessory navicular bone. Overlying forefoot edema. Procedure Note Wiley Abad MD, MPH - 03/29/2021 XR FOOT 3 OR MORE VIEWS (RIGHT), XR ANKLE 3 OR MORE VIEWS (RIGHT) COMPARISON: None. FINDINGS: Ankle: No ankle fracture. Normal alignment. The ankle mortise issymmetric. No soft tissue swelling. Foot: Comminuted fractures of the third and fourth metatarsal bases. Noother fracture is seen. Accessory navicular bone. Overlying forefootedema. IMPRESSION: 1. No acute fracture or dislocation in the right ankle. 2. Comminuted fractures of the base of third and fourth metatarsals. Critical results were communicated and documented using the AlertNotification of Critical Radiology Results (ANCR) system. ATTESTATION: I, Mukul Abad as teaching physician, have reviewed theimages for this case and if necessary edited the report originally createdby Brian Martin. Josue HARDEN IMG XR LOWER EXTREMITY Elena l Result documented in this encounter Visit Diagnoses Not on filedocumented in this encounter Additional Health Concerns Infection Onset Date Last Indicated Resolved Time CoV-Risk 10/10/2023 10/10/2023 10/21/2023 1:22 AM EDT CoV-Risk 07/04/2024 07/04/2024 07/15/2024 1:21 AM EST CoV-Risk 09/08/2024 09/08/2024 09/19/2024 1:21 AM EDT documented as of this encounter Care Teams Film Laboratory Technician Relationship Specialty Start Date End Date Pcp, Unknown PCP - General 03/29/21 08/05/21 documented as of this encounter Additional Source Comments The information contained in this document represents components of the legal health record. It is not the complete legal health record.[facility]
--- OUTSIDE RECORDS SUMMARY | 2024-07-04 11:34 | XMS_ITS | Encounter Summary ---
Author Organization [facility] Address [address] [place] [address] [place] [phone] Phone Care Team Providers Care Nutrition Specialist Name Role Phone Pcp, Unknown Primary Care Provider Unavailabl e Encounter Details Date Type Department Care Team (Late st Contact Info) Description 07/04/2024 11:34 AM EST Hospital Encounter [facility] [address] [place] [phone] Cecile Hogan FNP [address] [place] [phone] [email or web address] Social History Tobacco Use Types Packs/Day Years [...] AM EST documented as of this encounter Plan of Treatment Not on file documented as of this encounter Procedures Procedure Name Priority Date/Time Associated Diagnosis Comments XR CHEST PA AND LATERAL 2 VIEWS Urgent/patient waiting 07/04/2024 11:37 AM EST Viral upper respiratory tract infection with cough documented in this encounter Results * XR CHEST PA AND LATERAL 2 VIEWS (07/04/2024 11:37 AM EST) Anatomical Region Laterality Modality Chest Computed Radiogr aphy 07/04/2024 12:4 8 PM EST Impressions 07/04/2024 12:48 PM EST Normal chest. Narrative 07/04/2024 12:48 PM EST XR CHEST PA AND LATERAL 2 VIEWS Referring clinician's provided indication for this examination in [facility]: Cough; one week, worse at night, wheezing right lung. no hx of asthma COMPARISON: None FINDINGS: Devices/Tubes/Lines: None. Lungs: Normal. The lungs are clear. No focal consolidation or pulmonary edema. Pleura: Normal. No pleural effusion or pneumothorax. Heart/Mediastinum: Normal heart and mediastinum. Bones/Soft Tissues: Normal. No significant skeletal abnormality. Procedure Note Justino Reno MD - 07/04/2024 XR CHEST PA AND LATERAL 2 VIEWS Referring clinician's provided indication for this examination in [facility]:Cough; one week, worse at night, wheezing right lung. no hx of asthma COMPARISON: None FINDINGS: Devices/Tubes/Lines: None. Lungs: Normal. The lungs are clear. No focal consolidation or pulmonaryedema. Pleura: Normal. No pleural effusion or pneumothorax. Heart/Mediastinum: Normal heart and mediastinum. Bones/Soft Tissues: Normal. No significant skeletal abnormality. IMPRESSION: Normal chest. Cecile Hogan COLOR TELEVISION CONSOLE MONITOR IMG XR CHEST Final Resul t documented in this encounter Visit Diagnoses Not on filedocumented in this encounter Additional Health Concerns Infection Onset Date Last Indicated Resolved Time CoV-Risk 07/04/2024 07/04/2024 07/15/2024 1:21 AM EST CoV-Risk 09/08/2024 09/08/2024 09/19/2024 1:21 AM EDT documented as of this encounter Care Teams Nutrition Specialist Relationship Specialty Start Date End Date Pcp, Unknown PCP - General 10/30/23 documented as of this encounter Additional Source Comments The information contained in this document represents components of the legal health record. It is not the complete legal health record.[facility]
--- NOTE | 2025-05-06 09:11 | A.OFFVIS_ITS ---
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 She did not think she had ever had a Pap smear before but she has had vaginal exam is and screens before. She currently is sexually active she uses condoms for control if she did have a oops she would use plan B. she has had 2 abortions in the past. She is currently working on trying to eat healthier and working on weight loss when she was on different kinds of hormonal control she gained a lot a weight particularly when she was on Depo-Provera. [facility] Medical History (Updated 05/06/25 @ 13:03 by Aziza So CNM) GERD (gastroesophageal reflux disease) Obesity (BMI 30-39.9) ADHD Depression PTSD (post-traumatic stress disorder) Surgical History No pertinent past surgical history Family History Mother Mental health disorder Diabetes Heart disease Thyroid disease Social History Housing: House Alcohol intake: current Alcohol intake frequency: a few times a week Patient Tobacco Use Status: Former Tobacco user Tobacco use type: Cigarette Cigarette Packs Per Day: 0.25 Cigarettes Per Day: 2 e-Cigarette/Vaping Use: Never Used Second Hand Smoke Exposure: Yes (Marijuana ) Substance Use Type: Marijuana service: No Current occupational status: employed 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 [employer] Cognitive needs: No Hearing needs: No Vision needs: No Female Reproductive History Menstrual Age of Menarche: 11 Duration of menses: 3-5 days Date of last menstrual period: 04/30/25 control method: none Total pregnancies: 2 Ab induced: 2 History of abnormal pap smear: No Physical Exam Vital Signs: Last Vital Signs BP 134/86 05/06/25 09:17 BMI result Body Mass Index 35.2 Const General: healthy appearing, comfortable, no acute distress, well developed and alert Nutritional Appearance: average body habitus Orientation/consciousness: patient oriented x3 Limitations: no limitations HEENT Head: Yes normocephalic Neck Neck: Yes normal visual inspection Chest Chest palpation & inspection: normal inspection of the chest Breast/axilla inspection: normal inspection of the breasts and normal inspection of the axillae Breast/axilla palpation: normal palpation of the breasts and normal palpation of the axillae Resp Effort & Inspection: normal respiratory effort GI Inspection: Yes normal to inspection, No Abdominal wall edema and No distended Palpation (GI): Soft to palpation and nontender Other: External exam within normal limits vagina pink and moist cervix nulliparous pink smooth healthy appearing there is a little bit of a whitish yellowish discharge we will await results of any of the testing to see if there is anything to treat. Uterus feels midposition slightly difficult to feel but not enlarged ad nexa nonenlarged nontender. Good tone with Kegel. General: Yes bladder normal to palpation External Female Exam: normal external appearance and normal appearance of the urethra Speculum Exam - Vagina: normal appearance of the vagina, normal palpation and normal vaginal discharge Speculum Exam - Cervix: normal appearance of the cervix, normal palpation and nontender Bimanual exam- vagina & uterus: normal bimanual exam, normal palpation, uterine size normal, bladder normal to palpation, consistency normal, normal palpation, uterine mobility normal, uterine shape normal, No Cervical tenderness present, non-tender and no cervical motion tenderness Bimanual Exam- Adnexa, other: normal adnexae, no masses, normal and No adnexal tenderness Neuro General: patient oriented x3 Assessment & Plan Assessment & Plan (1) Well woman exam with routine gynecological exam: Code(s): Z01.419 - Encounter for gynecological examination (general) (routine) without abnormal findings Category: Medical (2) Obesity (BMI 30-39.9): Code(s): E66.9 - Obesity, unspecified Category: Medical (3) Cervical cancer screening: Code(s): Z12.4 - Encounter for screening for malignant neoplasm of cervix Category: Medical (4) Uses condoms as primary control method: Code(s): Z78.9 - Other specified health status Category: Social Hx (5) Screen for sexually transmitted diseases: Code(s): Z11.3 - Encounter for screening for infections with a predominantly sexual mode of transmission Category: Medical Plan -----Discussed in this visit the following: healthy balanced diet, regular and consistent exercise, getting recommended health screens, doing the best she can for her particular health concerns, kegel exercises, pap smear screening and followup recommendations, mammography screening and SBE, normal changes in cycles in her life stage--- . Reviewed her efforts to get healthier and lose the weight. She feels confident in her condom use discussed increasing awareness of fertility awareness as a augmentation to her self-care so she always knows where she is in her cycle. If any testing comes back positive we will let her know and offer her treatment. Coding Level of Care Code New Pt Prev Care 18-39yr(20849 Diagnoses Well woman exam with routine gynecological exam Z01.419 Obesity (BMI 30-39.9) E66.9 Cervical cancer screening Z12.4 Uses condoms as primary control method Z78.9 Screen for sexually transmitted diseases Z11.3
[2025-05-06 09:17] VITALS: BP 134/86; BMI 35.2
--- OUTSIDE RECORDS SUMMARY | 2025-05-06 09:41 | XMS_ITS | Encounter Summary ---
Author Organization [facility] Address [address] [place], [place] [id number] Phone Care Team Providers Care Brazing Machine Operator Automatic Name Role Phone Pcp, Unknown Primary Care Provider Unavailabl e Cordelia Pritchard MD Primary Care Provider Pcp, Unknown Primary Care Provider Unavailabl e Encounter Details Date Type Department Care Team (Late st Contact Info) Description 03/30/2021 Procedure Pass [facility], Ct Scan - [address] [address] Social History Tobacco Use Types Packs/Day Years [...] documented as of this encounter Care Teams Brazing Machine Operator Automatic Relationship Specialty Start Date End Date Pcp, Unknown PCP - General 03/29/21 08/05/21 Cordelia Pritchard MD PCP - General Internal Medicine 08/06/21 10/29/23 Pcp, Unknown PCP - General 10/30/23 documented as of this encounter Additional Source Comments The information contained in this document represents components of the legal health record. It is not the complete legal health record.[facility]
--- OUTSIDE RECORDS SUMMARY | 2025-05-06 09:42 | XMS_ITS | Clinical Summary ---
Author Organization [facility] Address [address] [place], [place] [id number] Phone Care Team Providers Care Sliver Former Name Role Phone Pcp, Unknown Primary Care [...] Completed 03/14/2000, 05/26, 04/15/1999, Additional history exists IPV VACCINES Completed 12/22/2003, 05/27, 03/14/2000, Additional history exists MENINGOCOCCAL VACCINES (ACWY) Completed 08/26/2016 HEPATITIS A VACCINES Aged Out No long er eligible based on patient's age to complete this topic MENINGOCOCCAL VACCINES (B) Aged Out N o longer eligible based on patient's age to complete this topic Medical Devices Not on file [facility] [address] PARTIAL O GENERIC COMMERCIAL [facility] [place] [address] [facility] HMO GENERIC [address] [place] [address]F[employer]Room [employer] [facility] [employer] [place] [address] [place] [address] [facility] Member Subscriber Plan / Payer (Ef fective 2022-Present) Name:Jo Cespedes Relation to Subscriber:Self Name:Jo Cespedes Payer ID:[id number] Group ID:[id number] Type:Medicaid Address: [address] PARTIAL O Member Subscriber Plan / Payer (Ef fective 2023-Present) Name:Jo Cespedes Relation to Subscriber:Self Name:Jo Cespedes Payer ID:Not on file Type:[facility] Address: [address] COMMERCIAL [place] [address] [facility] Options [facility] [place] [address] [employer] Medical[facility] [place] [address] [facility] COMM[facility] NET [facility] COMMERCIAL [facility] HE[facility] SAF[facility] NET PARTIAL [facility] HMO COMMERCIAL Care Teams Sliver Former Relationship Specialty Start Date End Date Pcp, Unknown PCP - General 10/30/23 Additional Source Comments The information contained in this document represents components of the legal health record. It is not the complete legal health record.[facility]
--- OUTSIDE RECORDS SUMMARY | 2025-05-06 09:42 | XMS_ITS | Clinical Summary ---
Author Organization [employer] Address [address] [place] [address] Care Team Providers Care Salesperson Women'S Hats Name Role Phone Unavailable Primary Care Provider [...] to complete this topic Insurance [facility] , [address] [place] [address]
== END 2025-05-06 13:58 | disposition home or self-care (01) ==
LOC: HO.HWS 09:04
PROVIDERS: Visit Provider Advanced Practice Midwife
DX: Z01.419 Encounter for gynecological examination (general) (routine) without abnormal findings (principal); E66.9 Obesity, unspecified; Z12.4 Encounter for screening for malignant neoplasm of cervix; Z78.9 Other specified health status; Z11.3 Encounter for screening for infections with a predominantly sexual mode of transmission
CPT/HCPCS: 99385; 99459

== ENCOUNTER 2025-05-06 09:04 | Outpatient (REF) | payer OTHER, SELFPAY ==
[2025-05-08 03:36] LABS: Bacterial Vaginosis PCR POSITIVE (Negative); Candida Group PCR NOT DETECTED (Not Detect); Candida glab krusei PCR NOT DETECTED (Not Detect); Trichomonas vaginalis PCR NOT DETECTED (Not Detect)
[2025-05-08 04:06] LABS: CT PCR NOT DETECTED (Not Detect.); NG PCR NOT DETECTED (Not Detect.)
== END 2025-05-06 09:05 | disposition home or self-care (01) ==
LOC: HO.LNP 09:04
PROVIDERS: Visit Provider Advanced Practice Midwife
DX: Z12.4 Encounter for screening for malignant neoplasm of cervix (principal); Z20.2 Contact with and (suspected) exposure to infections with a predominantly sexual mode of transmission; E66.9 Obesity, unspecified; Z78.9 Other specified health status; Z79.899 Other long term (current) drug therapy
CPT/HCPCS: 81515; 87491; 87591; 87626; 88175